=== PATIENT | male | born 1945 | race Caucasian/White ===

== ENCOUNTER 2020-05-27 05:31 | Day surgery (SDC) | payer MEDICARE, BC ==
[~2020-05-27] VITALS: Ht 172.7 cm; Wt 73.0 kg
[2020-05-27 06:23] VITALS: BP 159/78; PULSE 88; TEMP 97.5
[2020-05-27] MEDS ORDERED: ASPIRIN E.C. 8181 MG PO (06:31)
[2020-05-27] MEDS ORDERED: FLOMAX 0.40.4 MG/CAP PO (06:31)
[2020-05-27] MEDS ORDERED: PRINIVIL10 MG PO (06:31)
[2020-05-27] MEDS ORDERED: LIPITOR 40MG TA40 MG PO (06:32)
[2020-05-27] MEDS ORDERED: SYNTHROID0.075 MG/T PO (06:32)
[2020-05-27] MEDS ORDERED: ADVIL200 MG PO (06:33)
--- NOTE | 2020-05-27 06:35 | NUR ---
TO ROSA AT 0547- CALL LIGHT IN REACH
[2020-05-27] MEDS ORDERED: ULTRAM 50MG TAB50 MG PO (09:13)
[2020-05-27 09:31] VITALS: TEMP 99.5
[2020-05-27 09:50] VITALS: BP 122/61; PULSE 90
--- NOTE | 2020-05-27 09:50 | NUR ---
TO RM 1 PER CART FROM PACU. DROWSY AND ORIENTED X3, TALKING TO STAFF AND . PATIENT REFUSED TO EAT OR DRINK ANYTHING AT THIS TIME. DENIES PAIN OR DISCOMFORT. DENIES NAUSEA OR VOMITING. INCISION SITES CLEAN DRY INTACT.
[2020-05-27 10:05] VITALS: BP 121/64; PULSE 87
--- NOTE | 2020-05-27 10:05 | NUR ---
CONTINUES TO REST QUIETLY.
[2020-05-27 10:35] VITALS: BP 123/59; PULSE 85
--- NOTE | 2020-05-27 10:35 | NUR ---
RECEIVED SPRITE AND CRACKERS. DENIES PAIN OR DISCOMFORT DENIES NAUSEA OR VOMITING.
[2020-05-27 10:50] VITALS: BP 121/58; PULSE 16
--- NOTE | 2020-05-27 10:50 | NUR ---
ATE 100% AND TOLERATED WELL. PATIENT STATED HE WAS READY TO GO HOME.
--- NOTE | 2020-05-27 11:05 | NUR ---
AMBULATED TO BATHROOM WITH ASSIST AND TOLERATED WELL. VOIDED AND ASSISTED BACK TO .
--- NOTE | 2020-05-27 11:25 | NUR ---
RECEIVED DISCHARGE INSTRUCTIONS AND VERBALIZED UNDERSTANDING. AT BEDSIDE. DISCONTINUED IV AND INT- CATHETER INTACT. IS ASSISTING PATIENT TO GET DRESSED.
--- NOTE | 2020-05-27 11:35 | NUR ---
DISCHARGED PER WC BY NURSING STAFF TO PRIVATE CAR IN CARE OF -ABHI.
== END 2020-05-27 11:40 | disposition home or self-care (01) ==
LOC: SDCO 05:31
DX: K40.20 Bilateral inguinal hernia, without obstruction or gangrene, not specified as recurrent (principal); I10 Essential (primary) hypertension; E78.00 Pure hypercholesterolemia, unspecified; Z79.82 Long term (current) use of aspirin; E78.5 Hyperlipidemia, unspecified; Z20.828 Contact with and (suspected) exposure to other viral communicable diseases; Z86.73 Personal history of transient ischemic attack (TIA), and cerebral infarction without residual deficits; M19.90 Unspecified osteoarthritis, unspecified site
CPT/HCPCS: C1781; J0690; J1100; J1885; J2405; J2704; J3010; J7120